=== PATIENT | male | born 1975 | race Caucasian/White ===

== ENCOUNTER 2021-03-09 20:10 | Emergency (ER) | payer MEDICAID ==
[2021-03-09 22:12] LABS: CORONAVIRUS COVID-19 NAA POSITIVE (NEGATIVE)
--- NOTE | 2021-03-09 22:20 | EDM.PDOC ---
ED HPI GENERAL MEDICAL PROBLEM - General Chief Complaint: Respiratory Problem Stated Complaint: COUGH, FEVER, BODY ACHES Time Seen by Provider: 03/09/21 21:45 Source of Information: Reports: Patient History Limitations: Reports: No Limitations - History of Present Illness INITIAL COMMENTS - FREE TEXT/NARRATIVE: 45-year-old male who has had a cough and cold symptoms for the past week, says he gets "bronchitis twice a year". He is also been exposed to Covid and is unvaccinated. He was running some fevers earlier this week, that is resolved but he just feels so tired, generalized muscle aches and wants to be treated for his bronchitis. Onset: Gradual Duration: Day(s): (Symptoms for the last 7 days) Associated Symptoms: Reports: Cough, Malaise, Shortness of Breath, Weakness Treatments TRAVEL OT: Reports: Acetaminophen, NSAIDS - Related Data Allergies Allergy/AdvReac Type Severity Reaction Status Date / Time No Known Allergies Allergy Verified 03/09/21 21:30 Home Meds: Home Meds Acetaminophen [Tylenol Extra Strength] 2 tab PO Q4H 03/09/21 [History] Ibuprofen 600 mg PO Q4H 03/09/21 [History] guaiFENesin/Phenylephrine HCl [Mucinex Cold] 1 dose PO ASDIRECTED 03/09/21 [History] Past Medical History Respiratory History: Reports: Asthma, Pneumonia, Recurrent, Pneumothorax - Infectious Disease History Infectious Disease History: Reports: Chicken Pox Social & Family History - Family History Family Medical History: No Pertinent Family History - Tobacco Use Tobacco Use Status *Q: Never Tobacco User - Caffeine Use Caffeine Use: Reports: Soda - Recreational Drug Use Recreational Drug Use: No ED ROS GENERAL - Review of Systems Review Of Systems: See Below Constitutional: Reports: Malaise. Denies: Fever, Chills HEENT: Reports: Rhinitis. Denies: Throat Pain Respiratory: Reports: Shortness of Breath, Wheezing, Cough GI/Abdominal: Reports: No Symptoms Musculoskeletal: Reports: Other (Mild twisting of his right knee a couple days ago) Neurological: Reports: Headache, Weakness ED EXAM, GENERAL - Physical Exam Exam: See Below Exam Limited By: No Limitations General Appearance: Alert, No Apparent Distress Head: Atraumatic Respiratory/Chest: Rhonchi, Wheezing (Diffuse scattered expiratory wheezes with bilateral rhonchi but underlying good air movement) Cardiovascular: Regular Rate, Rhythm. No: Tachycardia Extremities: Other (Some mild soreness on the medial aspect of his right knee, no increased pain with valgus stress) Neurological: Alert, Oriented, No Motor/Sensory Deficits Psychiatric: Normal Affect, Normal Mood Skin Exam: Warm, Dry Course - Vital Signs Last Recorded V/S: Last Vital Signs Temp 97.2 F 03/09/21 21:33 Pulse 97 03/09/21 21:33 Resp 18 03/09/21 21:33 BP 136/77 03/09/21 21:33 Pulse Ox 96 03/09/21 21:33 - Orders/Labs/Meds Orders: Active Orders 24 hr Category Date Time Status Isolation [COMM] Stat Oth 03/09/21 21:37 Ordered Labs: Laboratory Tests 03/09/21 Range/Units 21:39 Influenza Type A RNA Negative (NEGATIVE) RSV RNA ([facility]) Negative (NEGATIVE) Influenza Type B RNA Negative (NEGATIVE) SARS-CoV-2 RNA ([facility]) Positive H (NEGATIVE) - Re-Assessments/Exams Free Text/Narrative Re-Assessment/Exam: 03/09/21 22:53 4 Plex Covid viral study was obtained and is positive for Covid. Patient is going to consider whether he wants monoclonal antibody therapy over the next 3 days. He is 7 days into the illness however and is probably going to do okay. He will return if he develops more shortness of breath, or recheck with his primary provider on Thursday if he wants monoclonal therapy. Departure - Departure Time of Disposition: 22:37 Disposition: Home, Self-Care 01 Clinical Impression: COVID-19 - Discharge Information Instructions: COVID-19 Referrals: PCP,None [Primary Care Provider] - Forms: ED Department Discharge Care Plan Goals: No smoking, increase activity as tolerated and try to eat a balanced diet. Recheck with your primary provider on Thursday or Thursday if you want to try monoclonal antibody therapy. Return to the emergency room if you have marked difficulty breathing. Sepsis Event Note (ED) - Evaluation Sepsis Screening Result: No Definite Risk - Focused Exam Vital Signs: Vital Signs Temp Pulse Resp BP Pulse Ox 03/09/21 21:33 97.2 F 97 18 136/77 96 - My Orders Last 24 Hours: My Active Orders 03/09/21 21:37 Isolation [COMM] Stat - Assessment/Plan Last 24 Hours: My Active Orders 03/09/21 21:37 Isolation [COMM] Stat
== END 2021-03-09 22:37 | disposition home or self-care (01) ==
LOC: JP.ED 20:10
DX: U07.1 COVID-19 (principal)
CPT/HCPCS: 0241U; 99283